=== PATIENT | male | born 1965 | race Caucasian/White ===

== ENCOUNTER 2021-08-08 14:21 | Outpatient (CLI) | payer MEDICARE, MEDICAID, SELFPAY ==
--- NOTE | ~2021-08-08 | US_ITS ---
EXAMINATION: US carotid duplex BI DATE: 08/08/2021 14:54 INDICATION: Elevated BMI. TECHNIQUE: Grayscale, color Doppler, and pulsed Doppler images of the cervical carotid arteries were obtained. The degree of vessel stenosis is placed in one of the following categories: normal, <50%, 5 0-69%, >=70% but less than near-occlusion, near-occlusion, or total occlusion. Note that percent sten osis relative to normal distal artery lumen diameter is indirectly measured from velocity measurement s as described by Job, et al. Radiology 2003; 229:340-346. Notes: Normal: Peak systolic velocity <125 centimeters/sec and no plaque <50%. Peak systolic velocity <125 ( EDV <40; ICA/CCA PSV ratio <2.0; used these factors only a tandem lesions or low cardiac output or co ntralateral disease) 50-69 %: PSV 125-230 (EDV 40-100; ratio 2-4) >= 70% but less than near occlusion: PSV greater than 230 (EDV > 100; ratio> 4.0) Near Occlusion: PSV that is variable; markedly narrowed lumen Occlusion: Absent flow on color/spectral Doppler and no lumen on holt scale. COMPARISON: None. FINDINGS: RIGHT: The right common carotid artery (CCA) peak systolic velocity (PSV) is 47 cm/s. The right internal car otid artery (ICA) PSV is 74 cm/s. The right ICA end-diastolic velocity (EDV) is 35 cm/s. The right IC A/CCA PSV ratio is 1.6. The external carotid artery (ECA) PSV is 87 cm/s. There is antegrade flow in the right vertebral artery. LEFT: The left CCA PSV is 48 cm/s. The left ICA PSV is 67 cm/s. The left ICA EDV is 28 cm/s. The left ICA/C CA PSV ratio is 1.4. The ECA PSV is 74 cm/s. There is antegrade flow in the left vertebral artery. IMPRESSION: 1. Less than 50% stenosis in the right internal carotid artery by sonographic criteria. 2. Less than 50% stenosis in the left internal carotid artery by sonographic criteria. Reviewed, dictated and finalized at location B. IMPRESSION: 1. Less than 50% stenosis in the right internal carotid artery by sonographic gerardo topete. 2. Less than 50% stenosis in the left internal carotid artery by sonographic christiane aguirre.
== END 2021-08-08 14:22 | disposition home or self-care (01) ==
LOC: ANHIMG 14:28
PROVIDERS: PCP Family Medicine; Visit Provider Family Medicine
DX: E66.01 Morbid (severe) obesity due to excess calories (principal); R07.9 Chest pain, unspecified; R09.89 Other specified symptoms and signs involving the circulatory and respiratory systems
CPT/HCPCS: 93880

== ENCOUNTER 2021-08-10 08:53 | Outpatient (CLI) | payer MEDICARE, MEDICAID, SELFPAY ==
--- NOTE | ~2021-08-10 | NM_ITS ---
EXAMINATION: NM janel stress w perfusion DATE: 08/10/2021 10:59 INDICATION: Chest pain. TECHNIQUE: Rest images were obtained following intravenous administration of 10.7 mCi Tc99m tetrofosm in (Myoview). The patient was infused intravenously with Lexiscan (regadenoson). Then, 33.8 mCi Tc99m tetrofosmin (Myoview) was administered intravenously, and stress images were obtained. Data was tammy nstructed into short axis and horizontal and vertical long axis SPECT images. Gated SPECT images were also obtained. COMPARISON: Myocardial perfusion imaging 12/23/09 FINDINGS: There is increased subdiaphragmatic activity. There is no definite reversible or fixed perf usion abnormality to suggest ischemia or infarction. There is no segmental wall motion abnormality. Left ventricular ejection fraction measures 70%. IMPRESSION: 1. No definite ischemia or infarct. 2. Normal left ventricular ejection fraction measuring 70%. Reviewed, dictated and finalized at location A.
--- NOTE | 2021-08-10 08:55 | EST_ITS ---
Patient Info Name: Papo Langston Age: 55 years : 1965 Gender: Male Ht: 73 in Wt: 400 lbs BSA: 3.15 m2 HR: 78 bpm BP: 132 / 77 mmHg Heart Rhythm: Sinus Rhythm Exam Date: 08/10/2021 10:15 AM Exam Location: [facility] Stress Patient Status: Outpatient Admit Date: 08/10/2021 Staff Ordering Physician: Angel Sevilla MD Attending Provider: Jesus Avalos NP Exercise Technologist: Flavia Puga CT Exercise Physician: Konrad Owens DO Exam Type: CA stress janel w NM Study Info Indications R07.9 - Chest pain, unspecified A regadenoson stress test was performed. Summary 1. 1. Negative Lexiscan stress test for ischemic ST changes by ECG criteria. 2. 2. Stable hemodynamics throughout the test. 3. 3. Nuclear scan to follow and will be reported separately. Please correlate with it. 4. 4. Patient informed of the above results. Protocol: Lexiscan Stress ECG Details Stage: REST Duration (min): 2 min : 25 sec HR (bpm): 78 SBP (mmHg): 132 DBP (mmHg): 77 Stage: REST Duration (min): 6 min : 38 sec HR (bpm): 76 SBP (mmHg): 132 DBP (mmHg): 77 Stage: STAGE 1 Duration (min): 0 min : 59 sec HR (bpm): 87 SBP (mmHg): 132 DBP (mmHg): 77 Stage: RECOVERY Duration (min): 1 min : 0 sec HR (bpm): 91 SBP (mmHg): 144 DBP (mmHg): 69 Stage: RECOVERY Duration (min): 2 min : 0 sec HR (bpm): 90 SBP (mmHg): 144 DBP (mmHg): 69 Stage: RECOVERY Duration (min): 3 min : 0 sec HR (bpm): 87 SBP (mmHg): 141 DBP (mmHg): 75 Stage: RECOVERY Duration (min): 3 min : 0 sec HR (bpm): 88 SBP (mmHg): 141 DBP (mmHg): 75 Rest HR: 76 bpm Peak HR: 96 bpm Rest Sys BP: 132 mmHg Peak Sys BP: 144 mmHg Max Pred HR: 163 bpm % Max Pred HR: 59 % Target HR: 139 bpm Max RPP: 13,824 bpm*mmHg Termination Reason: Completed protocol Cardiac Symptoms: Shortness of breath Total Time: 1 min : 0 sec Rest Medrano BP: 77 mmHg Peak Emdrano BP: 69 mmHg Total Dose: 0.4 mg Resting ECG Sinus rhythm, IRBBB. Stress ECG No ST changes. Arrhythmias None. Report Signatures
== END 2021-08-10 08:54 | disposition home or self-care (01) ==
LOC: ANHIMG 08:55
PROVIDERS: PCP Family Medicine; Visit Provider Nurse Practitioner Family
DX: R09.89 Other specified symptoms and signs involving the circulatory and respiratory systems (principal); E66.01 Morbid (severe) obesity due to excess calories; R07.9 Chest pain, unspecified; I10 Essential (primary) hypertension
CPT/HCPCS: 78452; 93017; A9502; J2785

== ENCOUNTER 2024-10-09 09:57 | Outpatient (CLI) | payer MEDICARE, MEDICAID, SELFPAY ==
--- NOTE | 2024-10-09 10:03 | ECG_ITS ---
Test Date: 2024-10-09 10:15:37 Measurements Intervals [place] Rate: 81 P: 136 LA: 164 QRS: 198 QRSD: 99 T: 125 QT: 355 QTc: 414 Interpretive Statements SINUS RHYTHM ARM LEADS REVERSED ATYPICAL ECG No previous ECG available for comparison Electronically Signed On 10-09-2024 10:45:34 CDT by Konrad Owens D.O.
--- OUTSIDE RECORDS SUMMARY | 2024-10-09 10:05 | XMS_ITS | Clinical Summary ---
Author Organization [facility] Address [address] [place] [id number] Care Team Providers Care Therapeutic Program Worker Name Role Phone Angel Sevilla MD Primary Care Provider [phone] Social History Tobacco Use Types Packs/Day Years Used Date Smoking Tobacco: Never Assessed Sex and Gender Information Value Date Recorded Sex Assigned at Not on file Legal Sex Male 7:52 PM CDT Gender Identity Not on file Sexual Orientation Not on file Plan of Treatment Health Maintenance Due Date Last Done Comments Colorectal Cancer Screening Colonoscopy (10 Years) 1965 Annual Physical 08/20/1966 Hepatitis C 08/20/1981 DTaP, Tdap and Td Vaccines ( 1 - Tdap) 08/20/1982 Pneumococcal Vaccine: 50+ Ye ars (1 of 1 - PCV) 08/20/2013 Zoster Vaccines (1 of 2) 08/20/2013 COVID-19 Vaccine ( - 2023-2 5 season) 2023 RSV Immunization or 60+ Years (1 - 1-dose 75+ series) 08/20/2038 Meningococcal B Vaccine Aged Out No l onger eligible based on patient's age to complete this topic Meningococcal Vaccine Aged Out No gregory johnny eligible based on patient's age to complete this topic RSV Immunizations Under 20 Months Aged Out No longer eligible based on patient's age to complete this topic Insurance [employer] COMP on file Care Teams Therapeutic Program Worker Relationship Specialty Start Date End Date Angel Sevilla MD [address] [place] [address] PCP - General FAMILY PRACTICE 10/23/19
== END 2024-10-09 09:58 | disposition home or self-care (01) ==
PROVIDERS: PCP Family Medicine; Visit Provider Orthopaedic Surgery
DX: I10 Essential (primary) hypertension (principal); R94.31 Abnormal electrocardiogram [ECG] [EKG]
CPT/HCPCS: 93005